=== PATIENT | male | born 1950 | race African-American/Black ===

== ENCOUNTER 2017-07-23 22:25 | Emergency (ER) | payer OTHER ==
[~2017-07-23] VITALS: Ht 182.9 cm; Wt 70.3 kg
--- NOTE | ~2017-07-23 | EKG ---
[address] [place] [address] ELECTROCARDIOGRAM REPORT Name: NALDO ESPINOZA [id number] Admission: 07/23/17 Attend Phys: Discharge: Date of : 46 Report #: [id number] THIS REPORT FOR: //name// [facility] ED Test Date: 2017-07-23 Test Time: 22:53:16 Pat Name: NALDO ESPINOZA Department: Room: [facility] Representative: BERTO : 1950 Requested By: Nelson Potts Order Number: [id number] MD: Chaim Castano Measurements Intervals Flora Rate: 93 P: 25 NC: 163 QRS: 9 QRSD: 85 T: 176 QT: 354 QTc: 441 Interpretive Statements Sinus rhythm Atrial premature complex Left atrial enlargement LVH with secondary repolarization abnormality Anterior ST elevation, probably due to LVH No previous ECG available for comparison Electronically Signed On 07-23-2017 23:08:56 AUTOMATED PROCESS OPERATOR by Chaim Castano [email or web address] <ELECTRONICALLY SIGNED> By: Chaim Castano MD 07/23/17 2308 2253 2253 Chaim Castano MD /[email or web address]
[2017-07-23 22:57] LABS: ANION GAP 9 mmol/L (7-16); BUN 13 mg/dL (7-18); CALCIUM 9.7 mg/dL (8.5-10.1); CHLORIDE 97 mmol/L (98-107); CO2 25 mmol/L (21-32); CREATININE 0.4 mg/dL (0.7-1.3); GLUCOSE 242 mg/dL (74-106); POTASSIUM 4.6 mmol/L (3.5-5.1); SODIUM 131 mmol/L (136-145)
[2017-07-23 23:06] LABS: TROPONIN-I < 0.04 ng/mL (<0.06)
[2017-07-23 23:22] LABS: HEMATOCRIT 35.6 % (42.0-52.0); HEMOGLOBIN 11.6 gm/dL (14.0-18.0); MANUAL DIFF YES; MCH 28.2 pg (26.0-34.0); MCHC 32.6 g/dL (28.0-37.0); MCV 86.4 fL (80.0-100.0); PLATELET COUNT 377 thou/uL (150-400); RBC 4.11 mil/uL (4.50-6.00); RDW 20.7 % (10.5-14.5); WBC 15.3 thou/uL (4.0-11.0)
[2017-07-23 23:49] LABS: ABSOLUTE NEUTROPHILS 12.4 thou/uL (1.4-8.2); ANISOCYTOSIS 2+; LARGE PLATELETS OCCASIONAL; TOTAL CELL COUNT 100
[2017-07-23 23:50] LABS: PLATELET ESTIMATE NORMAL; POLYCHROMASIA 1+
[2017-07-24] MEDS ORDERED: MORPHINE 11 MG/2 ML IV (01:45)
[2017-07-24] MEDS ORDERED: NITROGLYCERIN0.4 MG (01:46)
[2017-07-24] MEDS ORDERED: ACEPHEN650 M1 RECTAL (01:47)
[2017-07-24] MEDS ORDERED: HYDRALAZIN20 MG/1 ML IV (01:48)
[2017-07-24] MEDS ORDERED: DUONEB 2.5-0.5 M3 ML (01:49)
[2017-07-24] MEDS ORDERED: PANCRELIPASE PO (01:50)
[2017-07-24] MEDS ORDERED: PROBIOTIC1 EAC1 PER TUBE (01:51)
[2017-07-24] MEDS ORDERED: VENLAFAXINE H37.5 M2 PER TUBE (01:51)
[2017-07-24] MEDS ORDERED: ANTI-GAS166 MG PER TUBE (01:52)
[2017-07-24] MEDS ORDERED: METOCLOPRAMIDE IV (01:52)
[2017-07-24] MEDS ORDERED: LOPERAMIDE 2 MG2 M1 PER TUBE (01:53)
[2017-07-24] MEDS ORDERED: TYLENOL325 MG PER TUBE (01:53)
[2017-07-24] MEDS ORDERED: NOVOLOG100 UNIT/1 SUBQ (01:54)
[2017-07-24] MEDS ORDERED: ADULT WAL-100 MG/5 M PER TUBE (01:55)
[2017-07-24] MEDS ORDERED: GABAPENTIN 100100 MG PER TUBE (01:56)
[2017-07-24] MEDS ORDERED: OMEPRAZOLE 20 M20 M1 PER TUBE (01:57)
[2017-07-24] MEDS ORDERED: ACETYLCYST200 MG/1 M PER TUBE (01:57)
[2017-07-24] MEDS ORDERED: SYNTHROID50 MCG PER TUBE (01:58)
[2017-07-24] MEDS ORDERED: PROZAC20 MG PER TUBE (01:58)
[2017-07-24] MEDS ORDERED: ASPIR 8181 MG PER TUBE (01:59)
[2017-07-24] MEDS ORDERED: DUONEB 2.5-0.5 M3 ML INH (01:59)
[2017-07-24] MEDS ORDERED: HEPARIN SO5000 UNIT2 SUBQ (02:00)
[2017-07-24] MEDS ORDERED: RESTASIS1 EACH OPHTHALMIC (02:01)
[2017-07-24] MEDS ORDERED: VOLTAREN GEL 1100 G2 TOP (02:02)
[2017-07-24] MEDS ORDERED: CARDURA2 MG PER TUBE (02:02)
[2017-07-24] MEDS ORDERED: TRAMADOL 50 MG50 MG PER TUBE (02:03)
[2017-07-24] MEDS ORDERED: SENNA8.6 MG PER TUBE (02:04)
[2017-07-24] MEDS ORDERED: COLACE100 MG PER TUBE (02:04)
[2017-07-24 03:25] VITALS: BP 170/100
== END 2017-07-24 03:25 | disposition short-term general hospital (02) ==
LOC: ER 22:25
PROVIDERS: Emergency Medicine
DX: J18.9 Pneumonia, unspecified organism (principal); Y95 Nosocomial condition; R07.89 Other chest pain; Z88.5 Allergy status to narcotic agent; Z88.8 Allergy status to other drugs, medicaments and biological substances